=== PATIENT | male | born 1975 | race Caucasian/White ===

== ENCOUNTER 2018-07-09 16:29 | Emergency (ER) | payer SELFPAY ==
[2018-07-09] MEDS ORDERED: NORMAL SALINE 1000 ML 1,000 ML IV ONE ×2 (17:55→22:42)
--- NOTE | 2018-07-09 17:55 | ER Document Report ---
ED Medical Screen (RME) - General Chief Complaint: Headache Stated Complaint: VOMITING Time Seen by Provider: 07/09/18 17:45 Notes: Patient is a 43-year-old male with history of insulin-dependent diabetes mellitus that presents to the emergency department for chief complaint of nausea , vomiting and headache. Patient thinks he got food poisoning from meat loaf from a few days ago, but he is continued of nausea and vomiting, has not been taking his home medications for blood pressure and for his diabetes, to give himself a shot of insulin earlier today but it did not help, he did not check his sugar.. ROS: Other than noted above, the 12 point review of systems was reviewed with the patient and were negative, all pertinent findings are included in the HPI. PHYSICAL EXAMINATION: Vital signs reviewed. GENERAL: Patient appears to be uncomfortable HEAD: Atraumatic, normocephalic. EYES: Pupils equal round extraocular movements intact, conjunctiva are normal. ENT: Nares patent NECK: Normal range of motion CV: Heart regular rate and rhythm LUNGS: No respiratory distress Musculoskeletal: Normal range of motion NEUROLOGICAL: Normal speech PSYCH: Normal mood, normal affect. MDM: Patient seen and examined for rapid initial assessment. Vital signs reviewed. A comprehensive ED assessment and evaluation of the patient, analysis of test results and completion of the medical decision making process will be conducted by additional ED providers. *Note is created using voice recognition software and may contain spelling, syntax or grammatical errors. TRAVEL OUTSIDE OF THE [place] IN LAST 30 DAYS: No - Related Data Allergies/Adverse Reactions: No Known Allergies Allergy (Verified 12/10/14 13:53) Past Medical History - Social History Chew tobacco use (# tins/day): No Frequency of alcohol use: Social Drug Abuse: Marijuana - Past Medical History Cardiac Medical History: Reports: Hx Hypercholesterolemia, Hx Hypertension Pulmonary Medical History: Reports: Hx Bronchitis Neurological Medical History: Reports: Hx Cerebrovascular Accident Endocrine Medical History: Reports: Hx Diabetes Mellitus Type 2 Renal/ Medical History: Denies: Hx Peritoneal Dialysis Past Surgical History: Reports: Hx Appendectomy, Hx Neurologic Surgery - Surgery for spinal stenosis, Hx Orthopedic Surgery - Mini discectomy with plastic disc placement, no hardware. - Immunizations Hx Diphtheria, Pertussis, Tetanus Vaccination: Yes Physical Exam - Vital signs Vitals: Temp Pulse Resp BP Pulse Ox 97.6 F 58 L 15 175/94 H 98 12/12/18 16:34 07/09/18 16:34 07/09/18 16:34 07/09/18 16:34 07/09/18 16:34 Course - Vital Signs Vital signs: Temp Pulse Resp BP Pulse Ox 97.6 F 58 L 15 175/94 H 98 07/09/18 16:34 07/09/18 16:34 07/09/18 16:34 07/09/18 16:34 07/09/18 16:34 Doctor's Discharge - Discharge Referrals: LAWANDA SAUNDERS, [facility] [Primary Care Provider] - Follow up as needed
[2018-07-09] MEDS ORDERED: ONDANSETRON HCL INJ/PF 4 MG/2 ML SDV IV ONE ×2 (17:56→22:42)
[2018-07-09 19:29] LABS: ABSOLUTE LYMPHOCYTES (AUTO) 1.2 10^3/uL (0.5-4.7); ABSOLUTE MONOCYTES (AUTO) 0.4 10^3/uL (0.1-1.4); ABSOLUTE NEUT (AUTO) 12.4 10^3/uL (1.7-8.2); BASOPHILS % (AUTO) 0.3 % (0-2); HEMOGLOBIN 17.5 g/dL (13.5-17.0); LYMPHOCYTES % (AUTO) 8.6 % (13-45); MEAN CORPUSCULAR HEMOGLOBIN 31.5 pg (27.0-33.4); MEAN CORPUSCULAR HGB CONC 34.3 g/dL (32.0-36.0); MEAN CORPUSCULAR VOLUME 92 fl (80-97); PLATELET COUNT 224 10^3/uL (150-450); RED BLOOD COUNT 5.55 10^6/uL (4.35-5.55); RED CELL DISTRIBUTION WIDTH 12.9 % (11.5-14.0); SEGMENTED NEUTROPHILS % (AUTO) 88.1 % (42-78); TOTAL CELLS COUNTED % (AUTO) 100 %; WHITE BLOOD COUNT 14.1 10^3/uL (4.0-10.5)
[2018-07-09 19:30] LABS: VENOUS BLOOD BASE EXCESS 3.7 mmol/L; VENOUS BLOOD HCO3 31.3 mmol/L (20-32); VENOUS BLOOD PCO2 57.3 mmHg (35-63); VENOUS BLOOD PH 7.36 (7.30-7.42)
[2018-07-09 19:35] LABS: APPEARANCE,URINE CLEAR; BILIRUBIN,URINE NEGATIVE (NEGATIVE); COLOR,URINE YELLOW; GLUCOSE, URINE >=500 mg/dL (NEGATIVE); KETONES,URINE TRACE mg/dL (NEGATIVE); LEUKOCYTE ESTERASE,URINE NEGATIVE (NEGATIVE); NITRITE,URINE NEGATIVE (NEGATIVE); PROTEIN,URINE >=500 mg/dL (NEGATIVE); URINE SPECIFIC GRAVITY 1.038
--- NOTE | 2018-07-09 21:07 | EKG REPORT ---
SEVERITY:- ABNORMAL ECG - SINUS RHYTHM LEFT VENTRICULAR HYPERTROPHY : Confirmed by: Jerilyn Duron MD 09-Jul-2018 21:06:42
[2018-07-09 21:16] LABS: ALANINE AMINOTRANSFERASE 23 U/L (21-72); ALBUMIN 4.3 g/dL (3.5-5.0); ALKALINE PHOSPHATASE 84 U/L (38-126); ANION GAP 9 (5-19); ASPARTATE AMINO TRANSFERASE 22 U/L (17-59); BILIRUBIN,DIRECT 0.3 mg/dL (0.0-0.4); BILIRUBIN,TOTAL 0.9 mg/dL (0.2-1.3); BLOOD UREA NITROGEN 24 mg/dL (7-20); CALCIUM 9.2 mg/dL (8.4-10.2); CARBON DIOXIDE 30 mmol/L (22-30); CHLORIDE 103 mmol/L (98-107); GLUCOSE 281 mg/dL (75-110); LIPASE 109.5 U/L (23-300); POTASSIUM 4.8 mmol/L (3.6-5.0); SODIUM 142.4 mmol/L (137-145); TOTAL PROTEIN 7.4 g/dL (6.3-8.2)
[2018-07-09] MEDS ORDERED: FAMOTIDINE INJ/PF 20 MG/2 ML SDV IV ONE (22:37)
--- NOTE | 2018-07-09 22:43 | ER Document Report ---
ED General - General Chief Complaint: Headache Stated Complaint: VOMITING Time Seen by Provider: 07/09/18 17:45 Notes: This is a 43-year-old male. History of type 2 diabetes. On insulin. To the emergency department chief complaint of gastritis and vomiting for the last 2 days. States that he ate some bad meat loaf. Has no significant abdominal pain. He does denies any chest pain. Denies any shortness of breath. States that he has mild headache and nausea. No diarrhea. No other issues at this time. No neck stiffness. No blurred vision. TRAVEL OUTSIDE OF THE [place] IN LAST 30 DAYS: No - HPI Onset: Other - 3 days ago Onset/Duration: Gradual, Constant Quality of pain: Achy Severity: Moderate Pain Level: 3 Associated symptoms: Headache, Nausea, Vomiting - Related Data Allergies/Adverse Reactions: No Known Allergies Allergy (Verified 12/10/14 13:53) Past Medical History - General Information source: Patient - Social History Smoking Status: Current Every Day Smoker Chew tobacco use (# tins/day): No Frequency of alcohol use: Social Drug Abuse: Marijuana Lives with: Spouse/Significant other Family History: Reviewed & Not Pertinent Patient has suicidal ideation: No Patient has homicidal ideation: No - Past Medical History Cardiac Medical History: Reports: Hx Hypercholesterolemia, Hx Hypertension Pulmonary Medical History: Reports: Hx Bronchitis Neurological Medical History: Reports: Hx Cerebrovascular Accident Endocrine Medical History: Reports: Hx Diabetes Mellitus Type 2 Renal/ Medical History: Denies: Hx Peritoneal Dialysis Past Surgical History: Reports: Hx Appendectomy, Hx Neurologic Surgery - Surgery for spinal stenosis, Hx Orthopedic Surgery - Mini discectomy with plastic disc placement, no hardware. - Immunizations Hx Diphtheria, Pertussis, Tetanus Vaccination: Yes Review of Systems - Review of Systems Notes: Constitutional: denies: Chills, Diaphoresis, Fever, Malaise, Weakness EENT: denies: Eye discharge, Blurred vision, Tearing, Double vision, Nose congestion, Nose discharge, Throat swelling, Mouth pain Cardiovascular: denies: Palpitations, Heart racing, Orthopnea, Dyspnea, Chest pain Respiratory: denies: Cough, Hurts to breathe, Wheezing, Shortness of breath Gastrointestinal: denies: Abdominal pain, Diarrhea, Black stools, bright red blood in stool. Nausea and vomiting are present. Genitourinary: denies: Burning, Dysuria, Discharge, Frequency, Flank pain, Hematuria Musculoskeletal: denies: Joint pain, Joint swelling, Muscle pain, Muscle stiffness, back pain Hematologic/Lymphatic: denies: Anemia, Easy bleeding, Easy bruising, Blood clots Neurological/Psychological: denies: Confusion, Dementia, Depression, Loss of consciousness. Positive for headache Skin: No lesions, no masses, no skin breakdown, no abscesses Physical Exam - Vital signs Vitals: Temp Pulse Resp BP Pulse Ox 97.6 F 58 L 15 175/94 H 98 07/09/18 16:34 07/09/18 16:34 07/09/18 16:34 07/09/18 16:34 07/09/18 16:34 Interpretation: Normal - General General appearance: Appears well, Alert - HEENT Head: Normocephalic, Atraumatic Eyes: Normal Pupils: PERRL Mucous membranes: Dry - Respiratory Respiratory status: No respiratory distress Chest status: Nontender Breath sounds: Normal Chest palpation: Normal - Cardiovascular Rhythm: Regular Heart sounds: Normal auscultation Murmur: No - Abdominal Inspection: Normal Distension: No distension Bowel sounds: Normal Tenderness: Nontender Organomegaly: No organomegaly - Back Back: Normal, Nontender - Extremities General upper extremity: Normal inspection, Nontender, Normal color, Normal ROM , Normal temperature General lower extremity: Normal inspection, Nontender, Normal color, Normal ROM , Normal temperature, Normal weight bearing. No: Mariah's sign - Neurological Neuro grossly intact: Yes Cognition: Normal Orientation: AAOx4 Isaias Coma Scale Eye Opening: Spontaneous Isaias Coma Scale Verbal: Oriented Isaias Coma Scale Motor: Obeys Commands Isaias Coma Scale Total: 15 Speech: Normal Motor strength normal: LUE, RUE, LLE, RLE Sensory: Normal - Psychological Associated symptoms: Normal affect, Normal mood - Skin Skin Temperature: Warm Skin Moisture: Dry Skin Color: Normal Course - Re-evaluation Re-evalutation: 07/09/18 23:39 Patient is feeling much better. Nontoxic appearing at this time. Not tachycardic. elevated WBC count. Likely patient actually does have some sort of gastritis. EKG does not show any signs of ischemia. I have ordered a troponin just to make sure this is not an anginal equivalent. Patient has had 2 L of fluid. Zoltan. Pepcid. 07/10/18 00:22 Laboratory 12/07/1507/09/18 07/09/18 19:10 19:10 19:10 WBC 14.1 H RBC 5.55 Hgb 17.5 H Hct 51.0 MCV 92 MCH 31.5 MCHC 34.3 RDW 12.9 Plt Count 224 Seg Neutrophils % 88.1 H Lymphocytes % 8.6 L Monocytes % 3.0 Eosinophils % 0.0 Basophils % 0.3 Absolute Neutrophils 12.4 H Absolute Lymphocytes 1.2 Absolute Monocytes 0.4 Absolute Eosinophils 0.0 Absolute Basophils 0.0 VBG pH 7.36 VBG pCO2 57.3 VBG HCO3 31.3 VBG Base Excess 3.7 Sodium Cancelled Potassium Cancelled Chloride Cancelled Carbon Dioxide Cancelled Anion Gap Cancelled BUN Cancelled Creatinine Cancelled Est GFR ( Amer) Cancelled Est GFR (Non-Af Amer) Cancelled Glucose Cancelled Calcium Cancelled Total Bilirubin Cancelled Direct Bilirubin Cancelled Neonat Total Bilirubin Cancelled Neonat Direct Bilirubin Cancelled Neonat Indirect Bili Cancelled AST Cancelled ALT Cancelled Alkaline Phosphatase Cancelled Troponin I Total Protein Cancelled Albumin Cancelled Lipase Cancelled Urine Color Urine Appearance Urine pH Ur Specific [place] Urine Protein Urine Glucose (UA) Urine Ketones Urine Blood Urine Nitrite Urine Bilirubin Urine Urobilinogen Ur Leukocyte Esterase Urine WBC (Auto) Urine RBC (Auto) Urine Mucus (Auto) Urine Ascorbic Acid 07/09/18 07/09/18 07/09/18 19:10 20:25 20:25 WBC RBC Hgb Hct MCV MCH MCHC RDW Plt Count Seg Neutrophils % Lymphocytes % Monocytes % Eosinophils % Basophils % Absolute Neutrophils Absolute Lymphocytes Absolute Monocytes Absolute Eosinophils Absolute Basophils VBG pH VBG pCO2 VBG HCO3 VBG Base Excess Sodium 142.4 Potassium 4.8 Chloride 103 Carbon Dioxide 30 Anion Gap 9 BUN 24 H Creatinine 0.92 Est GFR ( Amer) > 60 Est GFR (Non-Af Amer) > 60 Glucose 281 H Calcium 9.2 Total Bilirubin 0.9 Direct Bilirubin 0.3 Neonat Total Bilirubin Not Reportable Neonat Direct Bilirubin Not Reportable Neonat Indirect Bili Not Reportable AST 22 ALT 23 Alkaline Phosphatase 84 Troponin I < 0.012 Total Protein 7.4 Albumin 4.3 Lipase 109.5 Urine Color YELLOW Urine Appearance CLEAR Urine pH 6.0 Ur Specific [place] 1.038 Urine Protein >=500 H Urine Glucose (UA) >=500 H Urine Ketones TRACE H Urine Blood NEGATIVE Urine Nitrite NEGATIVE Urine Bilirubin NEGATIVE Urine Urobilinogen 2.0 H Ur Leukocyte Esterase NEGATIVE Urine WBC (Auto) 1 Urine RBC (Auto) 3 Urine Mucus (Auto) RARE Urine Ascorbic Acid NEGATIVE - Vital Signs Vital signs: Temp Pulse Resp BP Pulse Ox 97.6 F 58 L 15 175/94 H 98 07/09/18 16:34 07/09/18 16:34 07/09/18 16:34 07/09/18 16:34 07/09/18 16:34 - Laboratory Result Diagrams: 07/09/18 19:10 07/09/18 20:25 Laboratory results interpreted by me: 07/09/18 07/09/18 07/09/18 19:10 19:10 20:25 WBC 14.1 H Hgb 17.5 H Seg Neutrophils % 88.1 H Lymphocytes % 8.6 L Absolute Neutrophils 12.4 H BUN 24 H Glucose 281 H Urine Protein >=500 H Urine Glucose (UA) >=500 H Urine Ketones TRACE H Urine Urobilinogen 2.0 H Discharge - Discharge Clinical Impression: Acute gastritis Qualifiers: Gastritis type: unspecified gastritis Gastritis bleeding: without bleeding Qualified Code(s): K29.00 - Acute gastritis without bleeding Condition: Good Disposition: HOME, SELF-CARE Instructions: Antinausea Medication ([facility]), Gastritis ([facility]) Additional Instructions: Continue to drink plenty of liquids. Take your diabetes medications as instructed. In the event he developed chest pain, abdominal pain, bloody stools , vomiting blood or other concerns please return immediately or follow-up with your regular doctor for repeat evaluation. check your blood sugar regularly as your blood sugar is slightly elevated today. Forms: Return to Work Referrals: LAWANDA SAUNDERS, CLAUC [COMMUNITY BASED STAFF] - Follow up as needed
[2018-07-09] MEDS ORDERED: ONDANSETRON ODT 4 MG TAB (6 TAB/ER DISP) PO PRN (23:40)
[2018-07-10 00:44] VITALS: BP 162/87
== END 2018-07-10 00:46 | disposition home or self-care (01) ==
LOC: ER 16:29
DX: K29.00 Acute gastritis without bleeding (principal); R51 Headache; R11.10 Vomiting, unspecified; R11.2 Nausea with vomiting, unspecified; E11.9 Type 2 diabetes mellitus without complications; Z79.4 Long term (current) use of insulin; F17.200 Nicotine dependence, unspecified, uncomplicated; I10 Essential (primary) hypertension
CPT/HCPCS: 93005; 96376; 99284; 96361; 96374; 96375; 36415; 82962; 83690; 85025; 80053; 81001; 84484; 82803; 93010; J2405; J7030; S0028

== ENCOUNTER 2018-07-10 02:40 | Emergency (ER) | payer SELFPAY ==
[2018-07-10] MEDS ORDERED: RINGERS SOLUTION,LACTATED 1,000 ML IV ONE (03:51)
[2018-07-10] MEDS ORDERED: SUCRALFATE 1 GM TABLET PO ONE (03:52)
[2018-07-10] MEDS ORDERED: PROMETHAZINE HCL 25 MG TABLET PO ONE (03:52)
--- NOTE | 2018-07-10 03:54 | ER Document Report ---
ED General - General Chief Complaint: High Blood Sugar Stated Complaint: DIABETIC CONCERNS Time Seen by Provider: 07/10/18 03:31 Notes: Patient is a 43-year-old male that comes to the emergency department for vomiting, dehydration, possible food poisoning. He states initially he started feeling bad about 2 hours after he ate some meatloaf that had been sitting out. He states he was seen here earlier, given fluids and nausea medication, he states he felt somewhat better but then he did throw up once more after leaving. He states that he never left, he has been waiting for a ride, he states he started feeling a little worse and decided to check back in. He states he is worried because earlier he was told his blood pressure was high and his blood sugar was high. He denies any developed symptoms including chest pain, dizziness, shortness of breath, fever. He denies diarrhea. He denies hematemesis. Past medical history of insulin dependent diabetes, on Lantus, hypertension on hydrochlorothiazide, appendectomy. TRAVEL OUTSIDE OF THE [place] IN LAST 30 DAYS: No - Related Data Allergies/Adverse Reactions: No Known Allergies Allergy (Verified 12/10/14 13:53) Past Medical History - General Information source: Patient - Social History Smoking Status: Never Smoker Drug Abuse: None Lives with: Alone Family History: Reviewed & Not Pertinent - Past Medical History Cardiac Medical History: Reports: Hx Hypercholesterolemia, Hx Hypertension Pulmonary Medical History: Reports: Hx Bronchitis Neurological Medical History: Reports: Hx Cerebrovascular Accident Endocrine Medical History: Reports: Hx Diabetes Mellitus Type 2 Renal/ Medical History: Denies: Hx Peritoneal Dialysis Past Surgical History: Reports: Hx Appendectomy, Hx Neurologic Surgery - Surgery for spinal stenosis, Hx Orthopedic Surgery - Mini discectomy with plastic disc placement, no hardware. - Immunizations Hx Diphtheria, Pertussis, Tetanus Vaccination: Yes Review of Systems - Review of Systems Constitutional: See HPI EENT: No symptoms reported Cardiovascular: No symptoms reported Respiratory: No symptoms reported Gastrointestinal: See HPI Genitourinary: No symptoms reported Male Genitourinary: No symptoms reported Musculoskeletal: No symptoms reported Skin: No symptoms reported Hematologic/Lymphatic: No symptoms reported Neurological/Psychological: No symptoms reported Physical Exam - Vital signs Vitals: Temp Pulse Resp BP Pulse Ox 98.3 F 90 18 169/91 H 99 07/10/18 02:49 07/10/18 02:49 07/10/18 02:49 07/10/18 02:49 07/10/18 02:49 - Notes Notes: GENERAL: Alert, interacts well. No acute distress. HEAD: Normocephalic, atraumatic. EYES: Pupils equal, round, and reactive to light. Extraocular movements intact. ENT: Oral mucosa moist, tongue midline. Oropharynx unremarkable. Airway patent. Nares patent, no nasal septal hematoma, TM's intact. NECK: Full range of motion. Supple. Trachea midline. LUNGS: Clear to auscultation bilaterally, no wheezes, rales, or rhonchi. No respiratory distress. HEART: Regular rate and rhythm. No murmur ABDOMEN: Soft, non-tender. Non-distended. Bowel sounds present in all 4 quadrants. GENITOURINARY: Deferred EXTREMITIES: Moves all 4 extremities spontaneously. No edema, normal radial and dorsalis pedis pulses bilaterally. No cyanosis. BACK: no cervical, thoracic, lumbar midline tenderness. No saddle anesthesia, normal distal neurovascular exam. NEUROLOGICAL: Alert and oriented x3. Normal speech. [cranial nerves II through XII grossly intact]. PSYCH: Normal affect, normal mood. SKIN: Warm, dry, normal turgor. No rashes or lesions noted. Course - Re-evaluation Re-evalutation: On my evaluation patient states he does not feel good generally and that he had thrown up again. He was given an IV, given lactated Ringer bolus, Phenergan p.o., Carafate. His physical examination is very unremarkable, he is well- appearing, talkative, his abdomen is completely benign, he has no neurological deficits. On reevaluation patient is sleeping and easily aroused. He tolerated p.o. fluids without any difficulty. Blood pressure improved. He states he is supposed be taking his blood pressure medication at home and he will resume it later. He does not have a headache, abdominal pain, nausea, or any other complaints on reevaluation. He states he feels much better after the Phenergan and he requests a prescription of this instead. Stable at time of discharge. - Vital Signs Vital signs: Temp Pulse Resp BP Pulse Ox 98.3 F 90 18 169/91 H 99 07/10/18 02:49 07/10/18 02:49 07/10/18 02:49 07/10/18 02:49 07/10/18 02:49 - Laboratory Result Diagrams: 07/10/18 04:10 Laboratory results interpreted by me: 07/10/18 04:10 Glucose 160 H Discharge - Discharge Clinical Impression: Dehydration, Hyperglycemia Vomiting Qualifiers: Vomiting type: unspecified Vomiting Intractability: non-intractable Nausea presence: with nausea Qualified Code(s): R11.2 - Nausea with vomiting, unspecified Condition: Stable Disposition: HOME, SELF-CARE Additional Instructions: Your blood glucose is 160. Your evaluation is most consistent with food toxin ingestion although you may have a viral illness. No other concerning N normalities noted at this time. Take the Phenergan for nausea if needed, start with clear fluids and progress to bland diet. Continue her insulin. Follow-up with your primary care for additional evaluation and management. Return if you worsen including uncontrolled vomiting , severe abdominal pain, fever, or any other concerning or worsening symptoms. Prescriptions: Promethazine HCl [Phenergan 25 mg Tablet] 25 mg PO Q6H PRN #20 tablet PRN Reason:
[2018-07-10 04:37] LABS: ANION GAP 10 (5-19); BLOOD UREA NITROGEN 17 mg/dL (7-20); CARBON DIOXIDE 29 mmol/L (22-30); CHLORIDE 103 mmol/L (98-107); GLUCOSE 160 mg/dL (75-110); POTASSIUM 4.2 mmol/L (3.6-5.0); SODIUM 141.7 mmol/L (137-145)
[2018-07-10 06:26] VITALS: BP 147/81
== END 2018-07-10 06:26 | disposition home or self-care (01) ==
LOC: ER 02:40
DX: E11.65 Type 2 diabetes mellitus with hyperglycemia (principal); E86.0 Dehydration; R11.2 Nausea with vomiting, unspecified; I10 Essential (primary) hypertension
CPT/HCPCS: 99283; 96360; 36415; 82962; 80048; J7120

== ENCOUNTER 2019-01-25 16:49 | Emergency (ER) | payer SELFPAY ==
--- NOTE | 2019-01-25 17:01 | ER Document Report ---
ED Medical Screen (RME) - General Chief Complaint: Abdominal Pain Stated Complaint: ABDOMINAL PAIN Time Seen by Provider: 01/25/19 16:55 Mode of Arrival: Ambulatory Information source: Patient Notes: Patient presents to the emergency department with complaints of gallbladder issues. He reports nausea abdominal pain for the past week and a half. Reports whenever he eats his stomach hurts. Reports he has noticed his right upper quad was swollen last week. That is better now. Still complains of right upper quad abdominal pain. Denies fever diarrhea. I have greeted and performed a rapid initial assessment of this patient. A comprehensive ED assessment and evaluation of the patient, analysis of test results and completion of the medical decision making process will be conducted by additional ED providers. Dictation of this chart was performed using voice recognition software; therefore, there may be some unintended grammatical errors. TRAVEL OUTSIDE OF THE [place] IN LAST 30 DAYS: No - Related Data Allergies/Adverse Reactions: No Known Allergies Allergy (Verified 12/10/14 13:53) Past Medical History - Social History Frequency of alcohol use: None Drug Abuse: Marijuana - Past Medical History Cardiac Medical History: Reports: Hx Hypercholesterolemia, Hx Hypertension Pulmonary Medical History: Reports: Hx Bronchitis Neurological Medical History: Reports: Hx Cerebrovascular Accident Endocrine Medical History: Reports: Hx Diabetes Mellitus Type 2 Renal/ Medical History: Denies: Hx Peritoneal Dialysis Past Surgical History: Reports: Hx Appendectomy, Hx Neurologic Surgery - Surgery for spinal stenosis, Hx Orthopedic Surgery - Mini discectomy with plastic disc placement, no hardware. - Immunizations Hx Diphtheria, Pertussis, Tetanus Vaccination: Yes Physical Exam - Vital signs Vitals: Temp Pulse Resp BP Pulse Ox 98.3 F 112 H 20 138/78 H 95 01/25/19 16:54 01/25/19 16:54 01/25/19 16:54 01/25/19 16:54 01/25/19 16:54 Course - Vital Signs Vital signs: Temp Pulse Resp BP Pulse Ox 98.3 F 112 H 20 138/78 H 95 01/25/19 16:54 01/25/19 16:54 01/25/19 16:54 01/25/19 16:54 01/25/19 16:54
[2019-01-25 17:30] LABS: APPEARANCE,URINE CLEAR; BILIRUBIN,URINE NEGATIVE (NEGATIVE); COLOR,URINE STRAW; GLUCOSE, URINE >=500 mg/dL (NEGATIVE); KETONES,URINE NEGATIVE (NEGATIVE); LEUKOCYTE ESTERASE,URINE NEGATIVE (NEGATIVE); NITRITE,URINE NEGATIVE (NEGATIVE); PROTEIN,URINE NEGATIVE (NEGATIVE); URINE SPECIFIC GRAVITY 1.015; UROBILINOGEN,URINE NEGATIVE mg/dL (<2.0)
[2019-01-25 17:32] LABS: ABSOLUTE EOSINOPHILS # (AUTO) 0.2 10^3/uL (0.0-0.6); ABSOLUTE LYMPHOCYTES (AUTO) 1.7 10^3/uL (0.5-4.7); ABSOLUTE MONOCYTES (AUTO) 0.6 10^3/uL (0.1-1.4); BASOPHILS % (AUTO) 0.5 % (0-2); EOSINOPHILS % (AUTO) 2.2 % (0-6); HEMATOCRIT 39.9 % (37.9-51.0); HEMOGLOBIN 13.7 g/dL (13.5-17.0); LYMPHOCYTES % (AUTO) 23.2 % (13-45); MEAN CORPUSCULAR HEMOGLOBIN 31.7 pg (27.0-33.4); MEAN CORPUSCULAR HGB CONC 34.3 g/dL (32.0-36.0); MEAN CORPUSCULAR VOLUME 92 fl (80-97); MONOCYTES % (AUTO) 7.7 % (3-13); PLATELET COUNT 157 10^3/uL (150-450); RED BLOOD COUNT 4.32 10^6/uL (4.35-5.55); RED CELL DISTRIBUTION WIDTH 12.2 % (11.5-14.0); SEGMENTED NEUTROPHILS % (AUTO) 66.4 % (42-78); TOTAL CELLS COUNTED % (AUTO) 100 %; WHITE BLOOD COUNT 7.5 10^3/uL (4.0-10.5)
[2019-01-25 17:50] LABS: ALANINE AMINOTRANSFERASE 36 U/L (21-72); ALBUMIN 3.7 g/dL (3.5-5.0); ALKALINE PHOSPHATASE 85 U/L (38-126); ANION GAP 9 (5-19); ASPARTATE AMINO TRANSFERASE 36 U/L (17-59); BILIRUBIN,DIRECT 0.2 mg/dL (0.0-0.4); BILIRUBIN,TOTAL 0.5 mg/dL (0.2-1.3); BLOOD UREA NITROGEN 8 mg/dL (7-20); CALCIUM 9.5 mg/dL (8.4-10.2); CARBON DIOXIDE 28 mmol/L (22-30); CHLORIDE 97 mmol/L (98-107); LIPASE 250.7 U/L (23-300); POTASSIUM 4.9 mmol/L (3.6-5.0); SODIUM 134.2 mmol/L (137-145); TOTAL PROTEIN 6.4 g/dL (6.3-8.2)
[2019-01-25 17:57] LABS: GLUCOSE 400 mg/dL (75-110)
[2019-01-25] MEDS ORDERED: NORMAL SALINE 1000 ML 1,000 ML IV ONE (18:00)
[2019-01-25] MEDS ORDERED: ONDANSETRON HCL INJ/PF 4 MG/2 ML SDV IV ONE (18:00)
--- NOTE | 2019-01-25 18:52 | RADIOLOGY REPORT (SQ) ---
EXAM DESCRIPTION: U/S ABDOMEN LIMITED W/O DOP COMPLETED DATE/TIME: 01/25/2019 6:02 pm REASON FOR STUDY: nausea ruq pain COMPARISON: None. TECHNIQUE: Dynamic and static grayscale images acquired of the abdomen and recorded on PACS. Tetoo uriah selected color Doppler and spectral images recorded. LIMITATIONS: None. FINDINGS: PANCREAS: No masses. Visualized pancreatic duct normal caliber. LIVER: No masses. Echotexture normal. LIVER VASCULATURE: Normal directional flow of the main portal vein and hepatic veins. GALLBLADDER: No stones. Contracted and thickened gallbladder. No pericholecystic fluid. ULTRASOUND-DETECTED CARTER'S SIGN: Negative. INTRAHEPATIC DUCTS AND COMMON DUCT: CBD and intrahepatic ducts normal caliber. No filling defects. INFERIOR VENA CAVA: Normal flow. AORTA: No aneurysm. RIGHT KIDNEY: Normal size. Normal echogenicity. No solid or suspicious masses. No hydronephrosis. No calcifications. PERITONEAL AND RIGHT PLEURAL SPACE: No ascites or effusions. OTHER: No other significant findings. IMPRESSION: Contracted and thickened gallbladder. No gallstones. No pericholecystic fluid. Negati ve sonographic Carter's sign. No biliary ductal dilation. HIDA may be used to further evaluate if c holecystitis is suspected. TECHNICAL DOCUMENTATION: JOB ID: [id number] [employer]- All Rights Reserved Reading location - IP/workstation name: [email or web address]
--- NOTE | 2019-01-25 19:10 | ER Document Report ---
ED General - General Chief Complaint: Abdominal Pain Stated Complaint: ABDOMINAL PAIN Time Seen by Provider: 01/25/19 16:55 Mode of Arrival: Ambulatory TRAVEL OUTSIDE OF THE [place] IN LAST 30 DAYS: No - HPI Notes: Patient is a 43-year-old male that presents to the emergency department for chief complaint of right upper quadrant abdominal pain. Patient reports of the last 2 weeks he has had pain in his right upper quadrant after eating. He states about 30 minutes after a meal he will feel the pain. He is trying to eat a better diet including increasing fruits and vegetables but reports no significant change in his symptoms. He denies associated fevers and chills. He has felt nauseated with no emesis. He denies constipation and diarrhea. Patient does have diabetes and has been compliant with his medications but states he has not seen his doctor in at least a year. Patient has not tried any [id number] medication for his symptoms. Past Medical History: DM Past Surgical History: Reviewed in chart Social History: Reviewed in chart Family History: Reviewed and noncontributory for presenting illness Allergies: Reviewed, see documented allergy list. REVIEW OF SYSTEMS: CONSTITUTIONAL : No fever No chills No diaphoresis No recent illness EENT: No vision changes No congestion No sore throat CARDIOVASCULAR: No chest pain No palpitations RESPIRATORY: No shortness of breath No cough No difficulty breathing GASTROINTESTINAL: abdominal pain nausea No vomiting No diarrhea GENITOURINARY: No dysuria No hematuria No difficulty urinating MUSCULOSKELETAL: No back pain No leg pain No arm pain SKIN: No rashes No lesions LYMPHATIC: No swollen, enlarged glands. NEUROLOGICAL: No lightheadedness No headache No weakness No paresthesias PSYCHIATRIC: No anxiety No depression PHYSICAL EXAMINATION: Vital signs reviewed, nursing noted reviewed. GENERAL: Well-appearing, well-nourished and in no acute distress. HEAD: Atraumatic, normocephalic. EYES: Eyes appear normal, extraocular movements intact, sclera anicteric, conjunctiva are normal. ENT: nares patent, oropharynx clear without exudates. Moist mucous membranes. NECK: Normal range of motion, supple without lymphadenopathy LUNGS: Breath sounds clear to auscultation bilaterally and equal. No wheezes rales or rhonchi. HEART: Regular rate and rhythm without murmurs ABDOMEN: Soft, mild right upper quadrant tenderness, negative Carter sign, n ormoactive bowel sounds. No rebound, guarding, or rigidity. No masses appreciated. EXTREMITIES: Nontender, good range of motion, no pitting or edema. NEUROLOGICAL: No focal neurological deficits. Moves all extremities spontaneously Motor and sensory grossly intact on exam. PSYCH: Normal mood, normal affect. SKIN: Warm, Dry, normal turgor, no rashes or lesions noted on exposed skin - Related Data Allergies/Adverse Reactions: No Known Allergies Allergy (Verified 12/10/14 13:53) Past Medical History - General Information source: Patient - Social History Smoking Status: Current Every Day Smoker Frequency of alcohol use: None Drug Abuse: Marijuana Family History: Reviewed & Not Pertinent Patient has suicidal ideation: No Patient has homicidal ideation: No - Past Medical History Cardiac Medical History: Reports: Hx Hypercholesterolemia, Hx Hypertension Pulmonary Medical History: Reports: Hx Bronchitis Neurological Medical History: Reports: Hx Cerebrovascular Accident Endocrine Medical History: Reports: Hx Diabetes Mellitus Type 2 Renal/ Medical History: Denies: Hx Peritoneal Dialysis Past Surgical History: Reports: Hx Appendectomy, Hx Neurologic Surgery - Surgery for spinal stenosis, Hx Orthopedic Surgery - Mini discectomy with plastic disc placement, no hardware. - Immunizations Hx Diphtheria, Pertussis, Tetanus Vaccination: Yes Physical Exam - Vital signs Vitals: Temp Pulse Resp BP Pulse Ox 98.3 F 112 H 20 138/78 H 95 01/25/19 16:54 01/25/19 16:54 01/25/19 16:54 01/25/19 16:54 01/25/19 16:54 Course - Re-evaluation Re-evalutation: 01/25/19 19:07 Vitals reviewed. Nursing notes reviewed. Patient's lab work shows hyperglycemia at 400. Patient states he had a "sugary drink" prior to coming to the emergency room. He was given 1 L of IV fluid and repeat blood sugar is 243. Patient has normal LFTs and total bili. His right upper quadrant ultrasound does show some biliary wall thickening with no other signs of acute cholec ystitis. Patient has a benign abdominal exam with very mild tenderness in the right upper quadrant and negative Carter sign. He has no fever or leukocytosis. At this point I do not clinically suspect acute cholecystitis. Patient symptoms most consistent with biliary colic. He was counseled on return precautions and dietary changes. He will be started on omeprazole for symptomatic management. He was referred to surgery for follow-up. Laboratory 01/25/19 01/25/19 01/25/19 17:15 17:15 17:15 WBC 7.5 RBC 4.32 L Hgb 13.7 Hct 39.9 MCV 92 MCH 31.7 MCHC 34.3 RDW 12.2 Plt Count 157 Seg Neutrophils % 66.4 Lymphocytes % 23.2 Monocytes % 7.7 Eosinophils % 2.2 Basophils % 0.5 Absolute Neutrophils 5.0 Absolute Lymphocytes 1.7 Absolute Monocytes 0.6 Absolute Eosinophils 0.2 Absolute Basophils 0.0 Sodium 134.2 L Potassium 4.9 Chloride 97 L Carbon Dioxide 28 Anion Gap 9 BUN 8 Creatinine 0.90 Est GFR ( Amer) > 60 Est GFR (Non-Af Amer) > 60 Glucose 400 H* Calcium 9.5 Total Bilirubin 0.5 Direct Bilirubin 0.2 Neonat Total Bilirubin Not Reportable Neonat Direct Bilirubin Not Reportable Neonat Indirect Bili Not Reportable AST 36 ALT 36 Alkaline Phosphatase 85 Total Protein 6.4 Albumin 3.7 Lipase 250.7 Urine Color STRAW Urine Appearance CLEAR Urine pH 7.0 Ur Specific [place] 1.015 Urine Protein NEGATIVE Urine Glucose (UA) >=500 H Urine Ketones NEGATIVE Urine Blood NEGATIVE Urine Nitrite NEGATIVE Urine Bilirubin NEGATIVE Urine Urobilinogen NEGATIVE Ur Leukocyte Esterase NEGATIVE Urine WBC (Auto) 1 Urine RBC (Auto) 0 Urine Mucus (Auto) RARE Urine Ascorbic Acid NEGATIVE Abdomen Ultrasound 01/25/19 16:59 IMPRESSION: Contracted and thickened gallbladder. No gallstones. No pericholecystic fluid. Negative sonographic Carter's sign. No biliary ductal dilation. HIDA may be used to further evaluate if cholecystitis is suspected. - Vital Signs Vital signs: Temp Pulse Resp BP Pulse Ox 98.3 F 112 H 20 138/78 H 95 01/25/19 16:54 01/25/19 16:54 01/25/19 16:54 01/25/19 16:54 01/25/19 16:54 - Laboratory Result Diagrams: 01/25/19 17:15 01/25/19 17:15 Laboratory results interpreted by me: 01/25/19 01/25/19 01/25/19 17:15 17:15 17:15 RBC 4.32 L Sodium 134.2 L Chloride 97 L Glucose 400 H* Urine Glucose (UA) >=500 H Discharge - Discharge Clinical Impression: Biliary colic, Hyperglycemia Condition: Stable Disposition: HOME, SELF-CARE Instructions: Gallbladder Disease ([facility]), Diabetes ([facility]) Additional Instructions: Please return to the emergency department if you have any worsening, or concern of your symptoms. Please return to the emergency department if you develop chest pain, difficulty breathing, severe abdominal pain, or ongoing vomiting. Please follow-up with your primary care physician in 2-3 days and any other recommended physicians. If prescribed, take all medications as directed. If you have any questions or concerns do not hesitate to return the emergency department for evaluation. Eat a good diabetic diet including low carbohydrates and sugars Prescriptions: Omeprazole 40 mg PO DAILY #30 capsule.dr Referrals: JAYSON BARON MD [ACTIVE STAFF] - Follow up as needed
[2019-01-25 19:19] VITALS: BP 103/56
== END 2019-01-25 19:36 | disposition home or self-care (01) ==
LOC: ER 16:49
DX: K80.50 Calculus of bile duct without cholangitis or cholecystitis without obstruction (principal); E11.65 Type 2 diabetes mellitus with hyperglycemia; Z79.899 Other long term (current) drug therapy; R10.11 Right upper quadrant pain; R10.811 Right upper quadrant abdominal tenderness; R11.0 Nausea; F17.200 Nicotine dependence, unspecified, uncomplicated; F12.10 Cannabis abuse, uncomplicated; I10 Essential (primary) hypertension; Z90.49 Acquired absence of other specified parts of digestive tract
CPT/HCPCS: 99284; 96361; 96374; 36415; 82962; 83690; 85025; 80053; 81001; 76705; J2405; J7030